=== PATIENT | female | born 1935 | race Caucasian/White ===

== ENCOUNTER 2017-12-21 01:59 | Emergency (ER) | payer OTHER, MEDICAID ==
[2017-12-21] MEDS ORDERED: CEFEPIME 2GM/50 ML (PMX) 50 ML IVPB (02:10)
[2017-12-21] MEDS ORDERED: EPINEPHRINE 4 MG in D5W 250 ML IV (03:30)
[2017-12-21] MEDS ORDERED: PROPOFOL 200 MG INJ (07:00)
[2017-12-21] MEDS ORDERED: CA CHLORIDE 10% 10 ML SYRINGE (07:00)
[2017-12-21] MEDS ORDERED: AMIODARONE 150 MG INJ (07:00)
[2017-12-21] MEDS ORDERED: EPINEPHrine 0.1 MG/ML SYG ×2 (07:00)
[2017-12-21] MEDS ORDERED: NA BICARBONATE 8.4% 50 ML SYG (07:00)
[2017-12-21] MEDS ORDERED: ATROPINE 1 MG/10 ML SYRINGE ×2 (07:00)
[2017-12-21] MEDS ORDERED: ETOMIDATE 20 MG INJ (07:00)
[2017-12-21] MEDS ORDERED: NORepinephrine 8MG/250 ML BAG (07:00)
[2017-12-21] MEDS ORDERED: LIDOCAINE 100 MG SYRINGE (07:00)
== END 2017-12-21 11:45 | disposition expired ==
LOC: E/R 01:59
DX: I46.9 Cardiac arrest, cause unspecified (principal); J96.90 Respiratory failure, unspecified, unspecified whether with hypoxia or hypercapnia; I10 Essential (primary) hypertension; E11.9 Type 2 diabetes mellitus without complications; G30.9 Alzheimer's disease, unspecified
CPT/HCPCS: 31500; 76937; 92950; 93005; 99291-25